=== PATIENT | male | born 1990 | race Caucasian/White ===

== ENCOUNTER → 2018-08-27 12:41 | Outpatient (CLI) | payer BC, SELFPAY | PROVIDERS: PCP Emergency Medicine; Visit Provider Emergency Medicine | DX: G47.33 Obstructive sleep apnea (adult) (pediatric) (principal); R53.83 Other fatigue; E66.9 Obesity, unspecified | CPT/HCPCS: G0399 ==

== ENCOUNTER → 2018-11-05 07:55 | Outpatient (CLI) | payer BC, SELFPAY | PROVIDERS: PCP Emergency Medicine; Visit Provider Nurse Practitioner Family | DX: G47.33 Obstructive sleep apnea (adult) (pediatric) (principal) | CPT/HCPCS: 94762 ==

== ENCOUNTER → 2018-11-09 14:45 | Outpatient (CLI) | payer BC, SELFPAY ==
--- NOTE | 2018-11-09 14:45 | CA_ITS ---
APPROVED REPORT EXAM: Comprehensive 2D, Doppler, and color-flow Echocardiogram Lay Out Former: Luna Han RVT Ht: 5 ft 10 in Wt: 306lbs BSA: 2.50 BP: 140/69 mmHg Indications: Arrhythmia, Obesity, Palpitations,ROSELINE 2D Dimensions LVOT 2.30 cm (M/F) 1.5-2.5 M-Mode Dimensions RVDd 2.20 cm (0.9-2.6) LA Diam 4.90 cm (1.9-4.0) LVDd 5.40 cm (3.5-5.7) Ao Diam 2.60 cm (2.0-3.7) LVDs 3.50 cm (3.5-5.7) AV Cusp 2.40 cm (1.5-2.6) IVSd 0.70 cm (0.6-1.1) PWd 1.00 cm (0.6-1.1) EF (Teich) 63.90% FS 35.20% EDV (Teich) 141.00 mL ESV (Teich) 50.90 mL LV Diastology E/A Ratio 1.4 MED E' 11.90 (< 7 cm/sec) E'/MED E' Ratio 7.80 (>14) LAT E' 13.40 (<10 cm/sec) E/LAT E' Ratio 7.00 (>14) Aortic Valve AoV Peak Jaspal. 140.00 (50-130 cm/s) AO Peak GR. 8.00 mmHg Mitral Valve MV E Max Jaspal. 93.30 (40-130 cm/s) MV A Velocity 65.60 (40-130 cm/s) E/A Ratio 1.40 Pulmonary Valve PA Accel Time 116.00 (>120 msec) Left Ventricle Left atrium is normal size, left ventricle is normal size, there is no concentric left ventricular hypertrophy, visually estimated ejection fraction 55% with no regional wall motion abnormality, diastolic parameters are within normal range. Right Ventricle Right atrium and right ventricular normal size and contractility. Aortic Valve Aortic valve is grossly normal, there is no aortic stenosis aortic insufficiency. Mitral Valve Mitral valve is grossly normal, there is no mitral stenosis, there is trace mitral regurgitation. Tricuspid Valve Tricuspid valve is grossly normal, there is no tricuspid stenosis, there is mild tricuspid regurgitation, tricuspid regurgitation jet velocity is inadequate for calculation of the right ventricular systolic pressure, inferior vena cava is normal size with normal inspiratory collapse. Pulmonic Valve Pulmonic valve is poorly visualized. Great Vessels Aortic root is normal size. Conclusion 1. Normal left ventricular size, preserved left ventricular systolic function, visually estimated ejection fraction of 55% with no regional wall motion abnormality, diastolic parameters are within normal range. 2. Trace mitral and mild tricuspid regurgitation 3. No significant pericardial effusion noted. Electronically signed by : Clifton Randolph, 11/09/2018 15:28:55
== END ==
PROVIDERS: PCP Emergency Medicine; Visit Provider Internal Medicine Cardiovascular Disease
DX: E66.01 Morbid (severe) obesity due to excess calories (principal); R94.31 Abnormal electrocardiogram [ECG] [EKG]; I49.9 Cardiac arrhythmia, unspecified; G47.33 Obstructive sleep apnea (adult) (pediatric); F17.200 Nicotine dependence, unspecified, uncomplicated; Z68.41 Body mass index [BMI] 40.0-44.9, adult
CPT/HCPCS: 93225; 93306

== ENCOUNTER → 2018-12-03 19:46 | Outpatient (CLI) | payer BC, SELFPAY | PROVIDERS: PCP Emergency Medicine; Visit Provider Nurse Practitioner Family | DX: G47.33 Obstructive sleep apnea (adult) (pediatric) (principal); G47.34 Idiopathic sleep related nonobstructive alveolar hypoventilation; Z99.89 Dependence on other enabling machines and devices | CPT/HCPCS: 95811 ==

== ENCOUNTER → 2019-01-31 20:01 | Outpatient (CLI) | payer BC, SELFPAY | PROVIDERS: PCP Emergency Medicine; Visit Provider Nurse Practitioner Family | DX: G47.33 Obstructive sleep apnea (adult) (pediatric) (principal); I49.9 Cardiac arrhythmia, unspecified; E66.9 Obesity, unspecified; F17.200 Nicotine dependence, unspecified, uncomplicated | CPT/HCPCS: 94762 ==

== ENCOUNTER 2019-09-01 21:50 | Emergency (ER) | payer OTHER, SELFPAY ==
[2019-09-01 22:00] VITALS: BP 151/91; PULSE 102; RESP 18; O2SAT 97
[2019-09-01 22:25] VITALS: BP 156/95; PULSE 111; RESP 16; TEMP 38; O2SAT 97; BMI 45.1
[2019-09-01 22:30] VITALS: BP 149/92; PULSE 99; RESP 16; O2SAT 98
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
[2019-09-01 22:41] LABS: Basophils # 0.1 K/mm3 (0-0.2); Basophils % 0.5 % (0.1-2.0); Eosinophils # 0.4 K/mm3 (0.0-0.4); Eosinophils % 2.4 % (0.1-12.0); Hematocrit 44.1 % (42.0-52.0); Hemoglobin 15.6 g/dL (14.1-18.0); Lymphocytes # 3.1 K/mm3 (0.7-4.5); Lymphocytes % 21.9 % (10-50); Mean Corpuscular HGB Conc 35.3 g/dL (31.8-35.4); Mean Corpuscular Volume 96.1 fl (80-94); Mean Platelet Volume 7.7 fl (7.4-10.4); Monocytes # 0.5 K/mm3 (0.1-1.0); Monocytes % 3.7 % (1.7-9.3); Neutrophils # 10.2 K/mm3 (1.8-7.8); Neutrophils % 71.5 % (37.0-80.0); Platelet Count 347 K/mm3 (142-424); Red Blood Count 4.59 M/mm3 (4.60-6.20); Red Cell Distribution Width 13.6 % (11.5-17.5); White Blood Count 14.2 K/mm3 (4.8-10.8)
[2019-09-01 22:45] LABS: Chloride 108 mmol/L (98-107); Potassium 3.9 mmoL/L (3.5-5.1); Sodium 139 mmol/L (136-145)
[2019-09-01 22:47] LABS: Amylase 43 U/L (30-110); Blood Urea Nitrogen 11 mg/dl (9-20); Creatinine Clearance Estimated 128 mL/min (50-200); Estimated Glomerular Filt Rate 102 ml/min (>60); GFR (African American) 123 ML/MIN (>60)
[2019-09-01 22:48] LABS: Alanine Aminotransferase 177 U/L (12-78); Albumin Level 4.6 g/dl (3.5-5.0); Albumin/Globulin Ratio 1.5 (1.1-1.8); Alkaline Phosphatase 65 U/L (38-126); Anion Gap 10.9 mEq/L (5-15); Aspartate Amino Transferase 97 U/L (17-59); Bilirubin,Total 0.5 mg/dl (0.2-1.3); Calcium 9.3 mg/dl (8.4-10.2); Carbon Dioxide 24 mmol/L (22.0-30.0); Glucose 117 mg/dl (74-100); Lipase 53 U/L (23-300); Total Protein,Serum 7.6 g/dl (6.3-8.2)
[2019-09-01 22:53] LABS: C-Reactive Protein 9.6 mg/L (0-4)
[2019-09-01 23:00] VITALS: BP 147/89; PULSE 99; RESP 16; O2SAT 98
[2019-09-01 23:04] LABS: Erythrocyte Sedimentation Rate 8 mm/hr (0-15)
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
--- NOTE | 2019-09-02 00:01 | PC.NURSE ---
called RAD pt still in RAD
--- NOTE | 2019-09-02 00:13 | PC.NURSE ---
pt back from RAD
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
[2019-09-02 00:59] VITALS: BP 140/76; PULSE 92; RESP 16; TEMP 38; O2SAT 98
== END 2019-09-02 01:02 | disposition home or self-care (01) ==
PROVIDERS: Emergency Provider Emergency Medicine
DX: S00.03XA Contusion of scalp, initial encounter (principal); S16.1XXA Strain of muscle, fascia and tendon at neck level, initial encounter; S30.1XXA Contusion of abdominal wall, initial encounter; V49.50XA Passenger injured in collision with unspecified motor vehicles in traffic accident, initial encounter; F17.210 Nicotine dependence, cigarettes, uncomplicated
CPT/HCPCS: 70450; 71045; 72125; 72128; 72131; 72170; 73030; 74177; 80053; 82150; 83690; 85025; 85651; 86140; 99283; Q9967